=== PATIENT | male | born 1980 | race Two or more races ===

== ENCOUNTER 2019-01-04 11:31 | Outpatient (CLI) | payer OTHER | END 2019-01-04 15:34 | disposition home or self-care (01) | LOC: RAD 11:31 | DX: B20 Human immunodeficiency virus [HIV] disease (principal); R05 Cough ==

== ENCOUNTER 2020-01-10 09:45 | Outpatient (CLI) | payer OTHER | END 2020-01-10 09:47 | disposition home or self-care (01) | LOC: RAD 09:45 | DX: R05 Cough (principal); B20 Human immunodeficiency virus [HIV] disease ==

== ENCOUNTER 2020-05-08 09:40 | Outpatient (CLI) | payer OTHER | END 2020-05-08 09:51 | disposition home or self-care (01) | LOC: RAD 09:40 | DX: R05 Cough (principal); B20 Human immunodeficiency virus [HIV] disease ==

== ENCOUNTER 2021-05-22 16:10 | Outpatient (CLI) | payer OTHER | END 2021-05-22 16:20 | disposition home or self-care (01) | LOC: RAD 16:10 | DX: R05 Cough (principal) ==

== ENCOUNTER 2022-05-20 08:12 | Outpatient (CLI) | payer OTHER | END 2022-05-20 08:24 | disposition home or self-care (01) | LOC: RAD 08:12 | DX: B20 Human immunodeficiency virus [HIV] disease (principal) ==

== ENCOUNTER 2023-05-15 07:11 | Outpatient (CLI) | payer OTHER | END 2023-05-15 07:13 | disposition home or self-care (01) | LOC: SONOGRAMA 07:11 | DX: R94.5 Abnormal results of liver function studies (principal); R10.817 Generalized abdominal tenderness; R05.8 Other specified cough; B20 Human immunodeficiency virus [HIV] disease ==